=== PATIENT | male | born 1955 | race Caucasian/White ===

== ENCOUNTER 2022-03-29 07:30 | Outpatient (CLI) | payer MEDICARE | END 2022-03-29 07:31 | disposition home or self-care (01) | LOC: TBSIIMAG 07:30 | PROVIDERS: ATTEND Family Medicine | DX: M47.26 Other spondylosis with radiculopathy, lumbar region (principal); M48.061 Spinal stenosis, lumbar region without neurogenic claudication; M43.16 Spondylolisthesis, lumbar region; K80.20 Calculus of gallbladder without cholecystitis without obstruction; M48.07 Spinal stenosis, lumbosacral region | CPT/HCPCS: 72148 ==

== ENCOUNTER 2025-07-07 07:30 | Outpatient (CLI) | payer MEDICARE ==
[2025-07-07 08:14] LABS: Estimated GFR - POC 82.0
[2025-07-07] MEDS ORDERED: Iopamidol 370 76% 100 ML VIAL ONE (09:23)
== END 2025-07-07 07:31 | disposition home or self-care (01) ==
LOC: CT 07:30
PROVIDERS: ATTEND Urology
DX: N30.01 Acute cystitis with hematuria (principal); N40.1 Benign prostatic hyperplasia with lower urinary tract symptoms
CPT/HCPCS: 36415; 74178; 81001; 82565 ×2; 87086; Q9967